=== PATIENT | female | born 1930 | race Caucasian/White ===

== ENCOUNTER 2018-11-27 18:52 | Emergency (ER) | payer MEDICARE ==
[2018-11-27] MEDS ORDERED: Fentanyl 100 MCG/2 ML VIAL ONE (20:51)
[2018-11-27] MEDS ORDERED: Sodium Bicarbonate 2.5 MEQ/5 ML VIAL ONE ×2 (21:15→21:18)
[2018-11-27] MEDS ORDERED: Lidocaine 2% MPF 10 ML AMP (For Epidural Use) ONE (21:15)
--- NOTE | 2018-11-27 21:15 | RAD ---
THREE VIEWS OF THE RIGHT FIFTH FINGER 11/27/18 COMPARISON: None. HISTORY: Cut finger with a knife. FINDINGS: There are severe degenerative changes involving the fifth distal and proximal interphalangeal joints as well as the fifth and fourth metacarpophalangeal joints. Bandaging material overlies the volar asp ect of the fifth finger at the level of the fifth middle phalanx. No radiopaque foreign body, displac ed fracture or evidence of dislocation. IMPRESSION: Soft tissue injury along the volar aspect of the fifth finger at the level of the middle phalanx. No associated fracture or dislocation. Prominent degenerative joint disease. POS: [facility]
[2018-11-27] MEDS ORDERED: Sodium Bicarb 50 MEQ/50 ML Abboject 8.4% SYRINGE ONE (21:17)
[2018-11-27 21:20] LABS: #Eosinphils 0.3 thou/uL (0.0-0.7); #Monocytes 0.5 thou/uL (0.11-0.59); #Neutrophils 2.7 thou/uL (1.40-6.50); %Basophils 0.7 % (0.0-1.0); %Eosinophils 5.8 % (0.0-10.0); %Lymphocytes 23.1 % (21.0-51.0); %Monocytes 10.8 % (0.0-10.0); %Neutrophils 59.6 % (42.0-75.0); Hemoglobin 12.4 g/dL (12.0-16.0); Mean Corpuscular HGB CONC 31.1 g/dL (32.0-36.0); Mean Corpuscular Hemoglobin 29.5 pg (27.0-31.0); Mean Corpuscular Volume 95.1 fL (78.0-98.0); Mean Platelet Volume 7.7 fL (7.4-10.4); Platelet Count 154 thou/uL (130-400); White Blood Cell (WBC) Count 4.5 thou/uL (4.8-10.8)
[2018-11-27 21:42] LABS: Anion Gap 13 mmol/L (10-20); BUN (Urea Nitrogen) 19 mg/dL (9.8-20.1); Calc. Creatinine Clearance 0 mL/min (70-130); Carbon Dioxide 22 mmol/L (23-31); Chloride 109 mmol/L (98-107); Estimated GFR-MDRD 58; Glucose 154 mg/dL (83-110); Potassium 3.6 mmol/L (3.5-5.1); Sodium 140 mmol/L (136-145)
--- NOTE | 2018-11-27 22:16 | CT ---
CT HEAD WITHOUT CONTRAST: 11/27/18 COMPARISON: 10/11/09 HISTORY: Fall, trauma, pain. TECHNIQUE: Axial CT imaging at 5 mm intervals from vertex through skull base without contrast. FINDINGS: The visualized paranasal sinuses and mastoid air cells are well aerated. There is no displaced calvar ial fracture. There is encephalomalacia involving the inferior posterior frontal lobe on the left suggesting prior left MCA infarction. There is no intracranial hemorrhage, midline shift, mass effect or ventricular e nlargement. IMPRESSION: No intracranial hemorrhage or displaced calvarial fracture. POS: [facility]
[2018-11-27] MEDS ORDERED: Adacel (T-DAP) 0.5 ML SYRINGE ONE (22:55)
--- NOTE | 2018-11-29 23:06 | EKG ---
Test Reason : FALL Blood Pressure : / mmHG Vent. Rate : 109 BPM Atrial Rate : 055 BPM P-R Int : 000 ms QRS Dur : 072 ms QT Int : 346 ms P-R-T Axes : 000 032 039 degrees QTc Int : 465 ms Septal infarct , age undetermined Abnormal ECG Confirmed by CEE SOLIS MD ([id number]), brands editor SOHAM MORALES ([id number]) on 11/29/2018 11:06:37 PM Referred By: Confirmed By:CEE SOLIS MD
== END 2018-11-27 23:18 | disposition home or self-care (01) ==
LOC: ERS 18:52
DX: S61.216A Laceration without foreign body of right little finger without damage to nail, initial encounter (principal); I10 Essential (primary) hypertension; Z86.73 Personal history of transient ischemic attack (TIA), and cerebral infarction without residual deficits; Z79.899 Other long term (current) drug therapy; W10.9XXA Fall (on) (from) unspecified stairs and steps, initial encounter
CPT/HCPCS: 12002; 70450; 80048; 85025; 90471; 90715; 93005; 96374; J2001; J3010

== ENCOUNTER 2018-12-10 18:36 | Observation (INO) | payer MEDICARE ==
[2018-12-10 20:23] LABS: Hemoglobin 12.1 g/dL (12.0-16.0); Mean Corpuscular HGB CONC 31.6 g/dL (32.0-36.0); Mean Corpuscular Hemoglobin 29.8 pg (27.0-31.0); Mean Corpuscular Volume 94.3 fL (78.0-98.0); Mean Platelet Volume 7.6 fL (7.4-10.4); Platelet Count 149 thou/uL (130-400); RBC Distribution Width 13.3 % (11.5-14.5); Red Blood Cell (RBC) Count 4.07 mill/uL (4.20-5.40); White Blood Cell (WBC) Count 1.6 thou/uL (4.8-10.8)
[2018-12-10] MEDS ORDERED: Ondansetron PF 4 MG/2 ML Vial ONE (20:26)
--- NOTE | 2018-12-10 20:41 | RAD ---
AP VIEW CHEST 12/10/18 HISTORY: Nausea, diarrhea, malaise. AP view chest is obtained on 12/10/18. Comparison made to previous exam from 11/30/13. AP view chest demonstrates interval development of cardiomegaly significantly larger than on the prev ious exam. There is also pulmonary vascular congestion seen. Calcification of the aorta is seen. IMPRESSION: Cardiomegaly and pulmonary vascular congestion. POS: [facility]
[2018-12-10 20:44] LABS: ALT (SGPT) 18 U/L (8-55); AST (SGOT) 17 U/L (5-34); Albumin 3.9 g/dL (3.4-4.8); Alkaline Phosphatase 58 U/L (40-150); Anion Gap 13 mmol/L (10-20); BUN (Urea Nitrogen) 18 mg/dL (9.8-20.1); Bilirubin, Total 0.8 mg/dL (0.2-1.2); Calc. Creatinine Clearance 0 mL/min (70-130); Calcium 8.4 mg/dL (7.8-10.44); Carbon Dioxide 19 mmol/L (23-31); Chloride 111 mmol/L (98-107); Estimated GFR-MDRD 71; Globulin 2.1 g/dL (2.4-3.5); Glucose 116 mg/dL (83-110); Lipase 24 U/L (8-78); Sodium 140 mmol/L (136-145)
[2018-12-10 20:56] LABS: Acanthocytes SLIGHT = 1-5 cells (100X) (None Seen); Band 15 % (5-11); Eosinophils 2 % (0-10); Lymphocytes 18 % (21-51); MDiff Complete? YES; Monocytes 25 % (0-10); Neutrophil 39 % (42-75); Platelet Morphology Comment Appears Adequate; Reactive Lymphocytes 1 % (0-10)
[2018-12-10] MEDS ORDERED: Magnesium 2 GM/50 ML BAG (IN WATER) ONE (22:20)
[2018-12-10] MEDS ORDERED: Potassium Chloride 40 MEQ in Sodium Chloride 0.9% 500 ML IVPB ONE (22:30)
[2018-12-10] MEDS ORDERED: MEROPENEM 1 GM/50 ML BAG IVPB SCH (23:15)
[2018-12-10 23:49] LABS: Troponin I 0.017 ng/mL (< 0.028)
[2018-12-11 00:12] VITALS: BMI 21.9
[2018-12-11 03:07] LABS: Troponin I Less than 0.010 ng/mL (< 0.028)
[2018-12-11] MEDS ORDERED: Acetaminophen 325 MG TAB PO PRN (03:28)
[2018-12-11] MEDS ORDERED: Morphine 4 MG/ML VIAL SLOW IVP PRN (03:29)
[2018-12-11] MEDS ORDERED: Metoprolol Tartrate 25 MG TAB PO SCH ×2 (03:30→11:15)
[2018-12-11] MEDS ORDERED: Furosemide 20 MG/2 ML VIAL SLOW IVP SCH (03:30)
[2018-12-11] MEDS ORDERED: Ondansetron PF 4 MG/2 ML Vial SLOW IVP PRN (04:01)
[2018-12-11] MEDS ORDERED: Ondansetron ODT 4 MG TAB PO PRN (04:01)
--- NOTE | 2018-12-11 04:37 | HP ---
PRIMARY CARE PHYSICIAN: Matthew Farnsworth MD CHIEF COMPLAINT: Nausea, vomiting, and diarrhea. HISTORY OF PRESENT ILLNESS: The patient is an 88-year-old female with past medical history of hypertension, AFib, coronary artery disease, hypothyroidism who presents to the emergency department for nausea, vomiting, and diarrhea since Saturday. The patient reports watery diarrhea and symptoms were getting worse, not improving at this point. The patient denies any fevers or any sick contacts. The patient also reports that she in the past was taking metoprolol 25 mg b.i.d., but has not taken over 1 year as it was stopped by one of her physician, she is unable to remember the name. The patient also reported that she was seen by her Audiology Technician about 3 weeks ago and the echocardiogram was normal for her. The patient denies any chest pain or abdominal pain at this point. The patient does not have any shortness of breath at this point. PAST MEDICAL HISTORY: Hypertension, AFib, coronary artery disease, left breast cancer status post resection, basal cell carcinoma of the neck, history of CVA in 2009, and myocardial infarction. PAST SURGICAL HISTORY: History of left mastectomy, orthopedic surgery. SOCIAL HISTORY: Denies smoking. Lives with the family at home and is . ALLERGIES: DENIES ANY ALLERGIES TO ANY MEDICATION. FAMILY HISTORY: Unknown. HOME MEDICATIONS: 1. Levothyroxine. 2. Aggrenox. 3. Amlodipine. 4. Isosorbide mononitrate. 5. Eliquis. 6. Nitroglycerine. 7. Multaq. REVIEW OF SYSTEMS: GENERAL: Denies any fever. HEENT: No neck pain. No changes to her vision. No problem with swallowing. CARDIOVASCULAR: Denies any chest pain. RESPIRATIONS: Denies any shortness of breath. GI: Abdominal pain. Positive for nausea, vomiting, and diarrhea. EXTREMITIES: No lower extremity edema. NEUROLOGIC: Denies any loss of consciousness. SKIN: Denies any changes or rashes to her skin. PSYCHIATRIC: Denies any confusion. The patient's daughter is present at bedside. PHYSICAL EXAMINATION: VITAL SIGNS: Blood pressure 122/74, heart rate 110 to 130, temperature 98.2, respiratory rate is 12, and O2 sat 96% on room air. GENERAL: Alert and oriented. HEENT: No lymphadenopathy noted. EYES: Extraocular movement intact. Oral mucosa within normal limits. CARDIOVASCULAR: Irregularly irregular tachycardia. No murmur, rubs, or gallops. CHEST/RESPIRATION: Clear bilaterally. No wheezes, rubs, or gallops. ABDOMEN: Soft, nontender. Bowel sounds positive. EXTREMITIES: No edema. NEUROLOGIC: Alert and oriented. PSYCHIATRIC: Pleasant mood. SKIN: No rashes noted. LABORATORY DATA: Chest x-ray significant for pulmonary vascular congestion. EKG, rapid ventricular response with AFib. Labs reviewed, significant for white blood cell count of 1.6 for hematology. For chemistry, labs significant for potassium of 0.03, creatinine 0.77, and BNP 590. ASSESSMENT AND PLAN: 1. Nausea, diarrhea: Likely due to gastroenteritis. The patient was given Merrem in the ER. We will hold off to further antibiotics at this point right now. Clear liquid diet. We will get CT abdomen and pelvis without any contrast, but cultures. Stool culture, Clostridium difficile. 2. Atrial fibrillation with RVR, likely elevated because of acute illnesses and also patient has been on metoprolol 25 mg b.i.d. that she was taking. We will give one dose of metoprolol 25 mg p.o. Cardiology consult in a.m. for further recommendation. We will continue home Eliquis 2.5 mg b.i.d. 3. Hypokalemia. Repleted in the ER. Trend labs in the morning. 4. Leukopenia. White blood cell count 1.6. The patient is not on chemo or radiation for a long time. Trend labs in the morning, possibly due to infection. If remains continued to be low, may need Hematology consult. 5. Coronary artery disease: Continue home medication. 6. Hypertension. Continue home medication at this point. 7. History of cerebrovascular disease. Continue Aggrenox. 8. Deep venous thrombosis prophylaxis. The patient is already on Eliquis. 9. Code status, full code. 10. Medical power of employment attorney, and daughter. Job ID: [id number] [facility]
[2018-12-11 06:02] LABS: Anion Gap 12 mmol/L (10-20); BUN (Urea Nitrogen) 18 mg/dL (9.8-20.1); Calc. Creatinine Clearance 54 mL/min (70-130); Calcium 7.8 mg/dL (7.8-10.44); Carbon Dioxide 21 mmol/L (23-31); Chloride 111 mmol/L (98-107); Estimated GFR-MDRD 79; Glucose 93 mg/dL (83-110); Magnesium 2.1 mg/dL (1.6-2.6); Potassium 3.8 mmol/L (3.5-5.1); Sodium 140 mmol/L (136-145)
[2018-12-11 06:14] LABS: Band 31 % (5-11); Eosinophils 1 % (0-10); Lymphocytes 13 % (21-51); MDiff Complete? YES; Mean Corpuscular HGB CONC 31.6 g/dL (32.0-36.0); Mean Corpuscular Hemoglobin 29.9 pg (27.0-31.0); Mean Corpuscular Volume 94.5 fL (78.0-98.0); Monocytes 31 % (0-10); Neutrophil 24 % (42-75); Platelet Count 148 thou/uL (130-400); RBC Distribution Width 13.3 % (11.5-14.5); Red Blood Cell (RBC) Count 4.02 mill/uL (4.20-5.40); White Blood Cell (WBC) Count 1.9 thou/uL (4.8-10.8)
[2018-12-11] MEDS: Apixaban 2.5 MG TAB PO SCH ×2 (07:47→20:19)
[2018-12-11 09:37] LABS: Troponin I Less than 0.010 ng/mL (< 0.028)
--- NOTE | 2018-12-11 10:50 | CT ---
CT CHEST WITHOUT CONTRAST CT ABDOMEN WITHOUT CONTRAST CT PELVIS WITHOUT CONTRAST: Date: 12/11/18 HISTORY: Chest pain. Diarrhea. Pulmonary congestion. COMPARISON: Chest radiograph prior day. FINDINGS: There is some scarring in the lingula and left lower lobe. There is a small focal area of consolidati on in the left lower lobe. Heart size markedly enlarged. Calcified granuloma right middle lobe. There are radiation changes of the left anterior 4th and 5th ribs with old fracture left anterior 5th , 6th, and 7th rib. Old left posterior 10th and 11th rib fractures. Moderate narrowing both hip joints. Intramedullary nail right femur. No acute thoracic or lumbar spine compression fracture. Narrowing of the subacromial space bilaterall y. The sternum and manubrium are intact. Distal transverse aorta measures 4.0 cm, dilated. Small pericardial effusion. Hypodensity hepatic seg ment KENNY measuring 8.0 mm, too small to fully characterize on this noncontrast exam. There is also hy podensity in hepatic segment V, measuring fluid attenuation likely a cyst. Mild third spacing of fluid. The appendix is visualized and is normal. No dilated loops of large or s mall bowel. Left mastectomy. No left axillary adenopathy is appreciated. No hydronephrosis. IMPRESSION: 1. Left lower lobe air space opacity may reflect aspiration or pneumonia. 2. Marked cardiomegaly. 3. Somewhat of a heterogeneous appearance to the liver. Nonemergent follow-up abdomen and pelvis CT or MRI with contrast is recommended. Small metastatic foci cannot be excluded on this noncontrast exa m. 4. Radiation changes multiple left-sided ribs with multiple old left-sided rib fractures. 5. Dilatation of the distal transverse aorta measuring up to 4.0 cm in size. POS: [facility]
[2018-12-11] MEDS ORDERED: Nitroglycerin 4.9 GM Bottle SL PRN (11:02)
--- NOTE | 2018-12-11 11:16 | PDOC.EVN ---
Event Note - Event Note Event Note: Feeling some better. Would like to try regular food. CT with possible LLL infiltrate. Exam benign. No symptoms. Will repeat CXR in am, but not treat for pneumonitis/pneumonia for now. Resume home meds. Give atenolol now. Cards consult pending. Rate likely appropriate to situation. Leukopenia consistent with a viral gastroenteritis. Recheck CBC, CXR in am. If ok and she is feeling better anticipate discharge. Has dilated Ao, but at 4 cm. Can be followed as outpatient by Cards. Heterogeneity of liver on CT unclear etiology. May be benign finding. May need outpatient follow up.
[2018-12-11 15:10] LABS: Troponin I Less than 0.010 ng/mL (< 0.028)
[2018-12-11] MEDS: Dronedarone HCl 400 MG TAB PO SCH (16:28)
[2018-12-11] MEDS: Aggrenox 200-25mg CAP PO SCH (20:20)
[2018-12-11] MEDS: Metoprolol Tartrate 25 MG TAB PO SCH (20:20)
[2018-12-11] MEDS ORDERED: Amlodipine 5 MG TAB PO SCH (21:00)
[2018-12-11] MEDS ORDERED: Apixaban 2.5 MG TAB PO SCH (21:00)
--- NOTE | 2018-12-12 05:07 | CON ---
DATE OF CONSULTATION: HISTORY OF PRESENT ILLNESS: Leida Fernandez is an 88-year-old white female who I initially evaluated in the hospital in November 2013. At that time, she was awakened at 4 a.m. with squeezing pain in her chest radiating to her left arm. Total duration of pain was 2 hours. She underwent cardiac catheterization, which revealed moderate inferobasal hypokinesis with ejection fraction of 40% to 45%. There was a 20% distal LAD, 20% lesion in a large ramus. There is a 20% proximal RCA lesion. The area of hypokinesis corresponded to the right coronary artery distribution and it was felt that her chest discomfort and MB of 17.7, troponin I of 2.009 were probably due to right coronary artery spasm. She has been followed intermittently since that time. In 2015, she developed atrial fibrillation and was placed on Multaq and Eliquis. On April 24, 2016, she underwent AARON and electrical cardioversion with return to sinus rhythm. She continued to be followed in the office and maintained sinus rhythm until her last office visit, which was November 18, 2018. At that visit, she was found to be back in atrial fibrillation. She would complain at night that she would have 10 seconds of left chest pressure that had been occurring over the last month. She underwent Lexiscan Cardiolite testing which revealed no evidence of ischemia. However, ejection fraction on that was 34%. Echocardiogram was then performed and this revealed ejection fraction of 50% to 55% with moderate left atrial and right atrial enlargement, moderate mitral regurgitation, moderate tricuspid regurgitation. She also had undergone 1-week long monitoring to see if episodes of chest pressure corresponded to episodes of rapid ventricular response. I have not received that monitoring information, but the patient states that the monitor had some technical difficulties and it is not certain if that will help. Since she has been admitted here, she does have some episodes of rapid ventricular response. She denies any increased shortness of breath, chest discomfort, or palpitations. She now was admitted with nausea, vomiting, and diarrhea. She denies any chest discomfort. Since I saw her in the office, she has not had any of the chest pressure like she described to me. PAST MEDICAL HISTORY: Paroxysmal atrial fibrillation, now persistent, hypertension, hyperlipidemia, history of CVA with aphasia which improved, history of hypothyroidism. She also had a non STEMI probably due to right coronary artery spasm in 2013. PAST SURGICAL HISTORY: ORIF of the right tib-fib fracture, breast cancer with lumpectomy, mastectomy, and chemotherapy. MEDICATIONS: At home include, 1. Multaq 400 mg b.i.d. 2. Eliquis 2.5 mg b.i.d. 3. Amlodipine 5 at bedtime. 4. Aggrenox 1 capsule b.i.d. 5. Atorvastatin 20 daily. 6. Imdur 60 mg at bedtime. 7. Levothyroxine 25 mcg daily. 8. Metoprolol 25 b.i.d. 9. Nitroglycerin p.r.n. ALLERGIES: NONE. SOCIAL HISTORY: She does not smoke. She occasionally drinks. FAMILY HISTORY: Father had myocardial infarction at age 77. REVIEW OF SYSTEMS: A 10-point review of systems is, otherwise, unremarkable. PHYSICAL EXAMINATION: VITAL SIGNS: Blood pressure 95/55, pulse of 99. HEENT: PERRL. NECK: Supple. CHEST: Clear. CARDIAC: S1 and S2 normal without any S3, S4, or murmurs. ABDOMEN: Normal bowel sounds without tenderness or organomegaly. EXTREMITIES: Revealed no clubbing, cyanosis, or edema. NEUROLOGIC: Grossly intact. LABORATORY DATA: EKG revealed atrial fibrillation with rapid ventricular response. Poor R-wave progression. Hemoglobin 12.0, hematocrit 38.0, white count 1900, platelets 148,000. Sodium 140, potassium 3.8, chloride 111, carbon dioxide 21, BUN 18, creatinine 0.70. Cardiac enzymes were unremarkable x4. IMPRESSION: 1. Nausea, vomiting, and diarrhea, most consistent with viral gastroenteritis. 2. Paroxysmal atrial fibrillation with recurrence. In 2015, she underwent electrical cardioversion. However, on November 18, 2018, followup was found to be in atrial fibrillation. 3. Normal Lexiscan Cardiolite scan. 4. Normal ejection fraction on echo of 50% to 55%. 5. Minimal coronary artery disease. 6. History of suo-PL-btavuduga myocardial infarction, probably secondary to right coronary artery spasm. 7. Positive family history. 8. Hyperlipidemia. 9. Hypertension. 10. History of cerebrovascular accident. PLAN: The patient will be continued on her current medications. She will continue to be evaluated as an outpatient. She certainly may need to undergo electrical cardioversion and this can be performed as an outpatient also. Job ID: [id number] [facility]
[2018-12-12 05:51] LABS: Anion Gap 9 mmol/L (10-20); BUN (Urea Nitrogen) 17 mg/dL (9.8-20.1); Calc. Creatinine Clearance 45 mL/min (70-130); Calcium 7.8 mg/dL (7.8-10.44); Carbon Dioxide 25 mmol/L (23-31); Chloride 109 mmol/L (98-107); Estimated GFR-MDRD 64; Glucose 95 mg/dL (83-110); Potassium 3.3 mmol/L (3.5-5.1); Sodium 140 mmol/L (136-145)
[2018-12-12 05:56] LABS: Band 6 % (5-11); Eosinophils 6 % (0-10); Hemoglobin 10.5 g/dL (12.0-16.0); Lymphocytes 15 % (21-51); MDiff Complete? YES; Mean Corpuscular HGB CONC 31.6 g/dL (32.0-36.0); Mean Corpuscular Hemoglobin 30.2 pg (27.0-31.0); Mean Corpuscular Volume 95.7 fL (78.0-98.0); Mean Platelet Volume 7.9 fL (7.4-10.4); Monocytes 16 % (0-10); Neutrophil 57 % (42-75); Platelet Count 138 thou/uL (130-400); Platelet Morphology Comment Appears Adequate; RBC Distribution Width 13.4 % (11.5-14.5); Red Blood Cell (RBC) Count 3.48 mill/uL (4.20-5.40); White Blood Cell (WBC) Count 3.9 thou/uL (4.8-10.8)
[2018-12-12] MEDS ORDERED: Levothyroxine Sodium 25 MCG TAB PO SCH (06:00)
[2018-12-12 08:17] VITALS: BP 91/50; TEMP 97.6
[2018-12-12] MEDS: Aggrenox 200-25mg CAP PO SCH (08:29)
[2018-12-12] MEDS: Metoprolol Tartrate 25 MG TAB PO SCH (08:29)
[2018-12-12] MEDS: Dronedarone HCl 400 MG TAB PO SCH (08:29)
[2018-12-12] MEDS: Apixaban 2.5 MG TAB PO SCH (08:30)
--- NOTE | 2018-12-12 08:49 | RAD ---
SINGLE VIEW OF THE CHEST: Comparison: 12-10-18 History: Aspiration. FINDINGS: Single view of the chest shows an enlarged but stable cardiomediastinal silhouette with atherosclerot ic calcifications in the aorta. There is no evidence of consolidation, mass, or pleural effusions. In creased interstitial markings are present. IMPRESSION: 1. No evidence of acute cardiopulmonary disease. 2. Cardiomegaly. POS: [facility]
[2018-12-12] MEDS ORDERED: Atorvastatin Calcium 20 MG TAB PO SCH (09:00)
[2018-12-18] MEDS ORDERED: Ergocalciferol 1.25 MG(50,000 UNITS) CAP PO SCH (09:00)
== END 2018-12-12 10:34 | disposition home or self-care (01) ==
LOC: ERS 18:36 → 2SW 22:47
PROVIDERS: ADMIT Family Medicine; ATTEND Family Medicine
DX: R11.2 Nausea with vomiting, unspecified (principal); R19.7 Diarrhea, unspecified; I10 Essential (primary) hypertension; I25.10 Atherosclerotic heart disease of native coronary artery without angina pectoris; I25.2 Old myocardial infarction; I48.1 Persistent atrial fibrillation; E03.9 Hypothyroidism, unspecified; E87.6 Hypokalemia; E78.5 Hyperlipidemia, unspecified; D72.819 Decreased white blood cell count, unspecified; Z85.3 Personal history of malignant neoplasm of breast; Z85.828 Personal history of other malignant neoplasm of skin; Z86.73 Personal history of transient ischemic attack (TIA), and cerebral infarction without residual deficits; Z92.21 Personal history of antineoplastic chemotherapy; Z90.12 Acquired absence of left breast and nipple; Z79.01 Long term (current) use of anticoagulants; Z79.899 Other long term (current) drug therapy; Z98.890 Other specified postprocedural states
CPT/HCPCS: 71045 ×2; 71250; 74177; 80048 ×2; 80053; 83605; 83690; 83735; 83880; 84484 ×4; 85025 ×3; 87040; 87045; 87046; 87324; 87449 ×2; 87899 ×2; 93005; 96361; 96365; 96366; 96367 ×2; 96375 ×2; 99285; G0378 ×2; 36415; J1940; J2185; J2405; J3475; J3480; J7050

== ENCOUNTER 2019-01-20 22:47 | Inpatient (IN) | payer MEDICARE ==
--- NOTE | 2019-01-20 23:29 | RAD ---
CHEST ONE VIEW 01/20/19 HISTORY: Weakness. COMPARISON: Radiograph 12/12/18. FINDINGS: The lungs are hyperinflated. The heart size is enlarged. No pneumothorax. No significant effusion. No acute osseous abnormality. IMPRESSION: Similar examination of the chest. Unchanged cardiomegaly. No evidence for pneumonia. POS: [facility]
[2019-01-20 23:52] LABS: #Eosinphils 0.1 thou/uL (0.0-0.7); #Lymphocytes 0.6 thou/uL (1.20-3.40); #Monocytes 0.3 thou/uL (0.11-0.59); #Neutrophils 3.1 thou/uL (1.40-6.50); %Basophils 0.7 % (0.0-1.0); %Eosinophils 1.3 % (0.0-10.0); %Lymphocytes 14.7 % (21.0-51.0); %Monocytes 6.3 % (0.0-10.0); Hemoglobin 11.8 g/dL (12.0-16.0); Mean Corpuscular HGB CONC 30.5 g/dL (32.0-36.0); Mean Platelet Volume 8.5 fL (7.4-10.4); Platelet Count 146 thou/uL (130-400); RBC Distribution Width 14.2 % (11.5-14.5); Red Blood Cell (RBC) Count 4.08 mill/uL (4.20-5.40)
[2019-01-21 00:16] LABS: ALT (SGPT) 24 U/L (8-55); AST (SGOT) 20 U/L (5-34); Albumin 3.9 g/dL (3.4-4.8); Alkaline Phosphatase 79 U/L (40-150); Anion Gap 12 mmol/L (10-20); BUN (Urea Nitrogen) 15 mg/dL (9.8-20.1); Bilirubin, Total 0.8 mg/dL (0.2-1.2); CK (CPK) 62 U/L (29-168); Calc. Creatinine Clearance 0 mL/min (70-130); Calcium 8.9 mg/dL (7.8-10.44); Carbon Dioxide 24 mmol/L (23-31); Chloride 107 mmol/L (98-107); Estimated GFR-MDRD 81; Globulin 2.1 g/dL (2.4-3.5); Glucose 163 mg/dL (83-110); Lipase 13 U/L (8-78); Potassium 3.8 mmol/L (3.5-5.1); Sodium 139 mmol/L (136-145)
[2019-01-21] MEDS ORDERED: Meclizine HCl 25 MG TAB ONE (00:42)
[2019-01-21 01:36] LABS: Bilirubin Negative (Negative); Blood, Urine Small (Negative); Clarity CLEAR (Clear); Glucose, Urine (Dipstick) Negative (Negative); Leukocyte Negative (Negative); Nitrite Negative (Negative); Protein, Urine (Dipstick) 30 mg/dL (Neg-Trace); Specific Gravity, Urine 1.013 (1.002-1.036); Urobilinogen 0.2 mg/dL (0.2-1.0)
[2019-01-21 01:39] LABS: Bacteria/HPF None Seen HPF (None Seen); Hyaline Casts/LPF 0-3 HYALINE CAST LPF (0-3 Hyaline); Pathc Cast-AUWi Flag 0.13 (0-2.49); Squamous Epithelial 0-3 HPF (0-3); WBC/HPF 0-3 HPF (0-3)
[2019-01-21] MEDS ORDERED: Acetaminophen 325 MG TAB PO PRN ×2 (02:28→11:17)
[2019-01-21 03:11] LABS: Troponin I Less than 0.010 ng/mL (< 0.028)
[2019-01-21 07:44] LABS: Troponin I Less than 0.010 ng/mL (< 0.028)
[2019-01-21] MEDS ORDERED: Famotidine 20 MG TAB PO SCH (09:00)
[2019-01-21] MEDS ORDERED: Famotidine 20 MG TAB ONE (09:04)
--- NOTE | 2019-01-21 10:03 | CT ---
PRELIMINARY REPORT/[facility]/EMERGENTY AFTER-HOURS PROCEDURE CT Head Without Contrast EXAM DATE/TIME: 01/21/2019 12:00 AM CLINICAL HISTORY: 88 years old, female; Signs and symptoms; Dizziness; Patient HX: PT C/O vertigo, n/v around 1600-took cold and flu meds- does not feel better TECHNIQUE: Imaging protocol: Axial computed tomography images of the head/brain without contrast. COMPARISON: No relevant prior studies available. FINDINGS: Brain: No hemorrhage. No acute infarct in large vascular territory. No mass effect. No extra-axial fl uid collection. Left temporal lobe encephalomalacia. Ventricles: Normal. No ventriculomegaly. Bones/joints: Unremarkable. No acute fracture. Sinuses: Mucosal thickening and air-fluid level right maxillary sinus. Partially opacified ethmoidal air cells. Mastoid air cells: Visualized mastoid air cells are unremarkable. No mastoid effusion. Soft tissues: Unremarkable. IMPRESSION: 1. No acute intracranial abnormality. 2. Mucosal thickening and air-fluid level of the right maxillary sinus could represent sinusitis. Thank you for allowing us to participate in the care of your patient. Dictated and Authenticated by: Cathy Chapin MD 01/21/2019 12:24 AM Central Time ([place] & [place]) FINAL REPORT CT OF THE BRAIN WITHOUT CONTRAST: Date: 01/20/19 INDICATION: History of vertigo. COMPARISON: Prior exam dated 11/27/18. FINDINGS/IMPRESSION: I agree with the preliminary report provided by [facility]. No acute intracranial abnormality is evident. Small area of encephalomalacia involving the left poste rior insular cortex and left anterior temporal lobe is stable to the comparison. There is moderate pa ranasal sinus disease with an air fluid level of the right maxillary sinus. POS:
[2019-01-21] MEDS ORDERED: Diltiazem 125 MG in Sodium Chloride 0.9% 100 ML IVPB SCH ×2 (10:15→11:30)
[2019-01-21 14:27] VITALS: BMI 21.5
--- NOTE | 2019-01-21 16:27 | HP ---
PRIMARY CARE PHYSICIAN: Matthew Farnsworth MD GLASS BEAD MAKER: Paolo Skinner MD CHIEF COMPLAINT: "I'm feeling dizzy." HISTORY OF PRESENT ILLNESS: Ms. Fernandez is a pleasant 88-year-old female, who has a history of hypertension as well as atrial fibrillation. She was recently admitted to the hospital with a bout of gastroenteritis. She says that on yesterday around 4:00 p.m., she noticed that the room would seem to spin, every time she tried to sit up or stand. She did not do this very long to see whether or not it would stop, but she believes it would continue and the dizziness was so severe that she felt like she may pass out. She also felt some nausea, but did not have any vomiting. She denies any headache. She denies any weakness in her extremities, but says she felt "weak all over" and felt like her legs could give out. As a result of these symptoms, she came to the ER for evaluation and she is being admitted for possible TIA symptoms as well as atrial fibrillation. The patient also notes that she did have a bad cough about a week ago. She called her primary care physician, who did give her some cough medicine and that got better. She also complains of feeling like her heart has been racing, but she denies any suraj abdominal pain. Otherwise, no other symptoms. While we were in the room evaluating the patient, it was noted that she would go into atrial fibrillation with rapid ventricular response with a heart rate up to as high as 150, typically when she tried to move or sit up. After she laid back down, her heart rate would improve somewhat to the low 100s. REVIEW OF SYSTEMS: With regard to the review of systems, all systems were reviewed and are negative except for that mentioned in the history of present illness. PAST MEDICAL HISTORY: Significant for hypertension; chronic atrial fibrillation; coronary artery disease; breast cancer, status post left mastectomy; basal cell carcinoma; cerebrovascular accident, where she says she was left with a speech deficit, which sounds like an expressive aphasia, this was about 3 years ago. She also has a history of MO. PAST SURGICAL HISTORY: She has had a left breast mastectomy. She says that she also had a crush injury to her right leg and had a surgical repair, also surgery for varicose veins. ALLERGIES: NO KNOWN DRUG ALLERGIES. SOCIAL HISTORY: She is . She and her live alone. She is a nonsmoker and nondrinker, and she has been for 68 years. Her as well as her daughter are surrogate decision makers. Her 's name is Stephen Fernandez and her daughter's name, Kendra Dan. She would not want to be resuscitated. She would not want chest compressions or intubation and is therefore DNAR. FAMILY HISTORY: Significant for her sister, who of cancer at age 65. Her brother had a heart attack and she says there is other heart disease in the family. CURRENT MEDICATIONS: Include; 1. Multaq, unsure of the dose twice a day. 2. Levothyroxine 25 mcg p.o. daily. 3. Aggrenox twice a day. 4. Amlodipine 5 mg daily. 5. Isosorbide mononitrate extended release 60 mg. 6. Eliquis 2.5 mg twice daily. 7. Nitro-Dur. 8. Tylenol as needed. 9. Vitamin D3. 10. Ocuvite. 11. Citracal. 12. Retaine eye drops. PHYSICAL EXAMINATION: GENERAL: She is alert and oriented. She appears to be in no acute distress. She is well developed and well nourished. VITAL SIGNS: Her blood pressure was 124/59, heart rate 103 ranging up to 150, respiratory rate of 17, temperature is 97.5, and O2 sat is 92% on room air. HEENT: Her pupils are equal, round, and reactive. Extraocular muscles are intact. Her sclerae are anicteric. Throat; there is no erythema. No exudate. NECK: There is no adenopathy. No bruits. Lungs: Her lungs were clear to auscultation. There are no wheezing, no rales, no rhonchi. CARDIOVASCULAR: Heart rate is rapid, irregular. Did not appreciate any murmurs, clicks, or rubs. ABDOMEN: Soft. It is nontender and nondistended. Positive for bowel sounds. There is no rebound, no guarding, no organomegaly. EXTREMITIES: She did have a deformity in the right lower calf. There is no appreciable edema. No significant joint effusions. NEUROLOGIC: Her cranial nerves II through XII are grossly intact. Her muscle strength is 5/5 in both her upper and lower extremities. SKIN AND INTEGUMENT: No skin changes. No rash. LABORATORY DATA AND X-RAY: On her EKG, it is atrial fibrillation with rapid ventricular response. The rate was approximately 118. On her chest x-ray, she has cardiomegaly. There is no evidence of any effusion or infiltrate seen. This was from 01/20, white blood cell count is 4.0, hemoglobin 11.8, hematocrit is 38.7, and platelet count is 146. Sodium 139, potassium 3.8, chloride is 107, CO2 is 24, BUN of 15, creatinine 0.69, and glucose is 169. Lactic acid 1.8. Troponin less than 0.010. Natriuretic peptide was 819. Urinalysis was essentially negative. ASSESSMENT AND PLAN: This is an 88-year-old female, who presents with dizziness upon standing or sitting. The initial thought was possible orthostatic hypotension. However, when we were in the room with the patient, it was noted that her heart rate would go up as high as 150 and then when she would lay down and relax, it would go back down to the low 100s. I suspect that her symptoms could be related to her heart rate with regard to atrial fibrillation. She is also at risk for thrombotic disease with regard to atrial fibrillation. However, she is on Eliquis and states that she is compliant with the medication. However, it is noted that she is on the lower dose of Eliquis at 2.5 mg twice a day and she does have normal renal function. This may need to be readdressed. She will be admitted to telemetry due to the atrial fibrillation with rapid ventricular response. 1. She is going to be placed on IV Cardizem due to the rapid rate. We will also consult her recycling technician, Dr. Skinner, with regard to definitive recommendations regarding her atrial fibrillation. 2. The dizziness, I suspect is due to #1. When she is feeling a bit more stable, we can try to obtain orthostatics on her with the help of the nursing staff. 3. Hypertension. We will reconcile and continue her usual medications for hypertension and p.r.n. medications as needed. 4. Coronary artery disease. Again reconcile and restart her usual medications for coronary artery disease. Job ID: [id number]
[2019-01-21] MEDS: Apixaban 2.5 MG TAB PO SCH (20:34)
[2019-01-21] MEDS: Aggrenox 200-25mg CAP PO SCH (20:34)
[2019-01-21] MEDS: Amlodipine 5 MG TAB PO SCH (20:34)
[2019-01-21] MEDS: Dronedarone HCl 400 MG TAB PO SCH (20:34)
[2019-01-21] MEDS: Famotidine 20 MG TAB PO SCH (20:35)
[2019-01-22] MEDS: Meclizine HCl 25 MG TAB PO SCH ×4 (01:29→21:23)
--- NOTE | 2019-01-22 03:56 | CON ---
DATE OF CONSULTATION: HISTORY OF PRESENT ILLNESS: Leida Fernandez is an 88-year-old white female whom I have followed since 2013. At that time, she presented with shooting pain in her chest that occurred at 4 a.m. awakening her from sleep. The pain lasted approximately 2 hours. MB was 17.7, troponin I 2.009. She underwent cardiac catheterization, which revealed moderate inferobasal hypokinesis with ejection fraction of 40% to 45%. There was a 20% distal LAD, 20% lesion in large ramus and 20% proximal RCA lesion. The area of hypokinesis corresponded to the right coronary artery distribution, and it is felt that her chest discomfort and non-STEMI were due to right coronary artery spasm. She was followed intermittently after that. In 2015, she developed atrial fibrillation and was placed on Multaq and Eliquis. On 04/24/2016, she underwent AARON and electrocardioversion and returned to sinus rhythm. She continued to maintain sinus rhythm until her last office visit on 11/18/2018. At that time, she was found to be back in atrial fibrillation. She complained at night to have 10 seconds of left chest pressure that had been occurring for one month. She underwent Lexiscan Cardiolite testing which revealed no evidence of ischemia. However, ejection fraction was 34%. Echo was then performed, and this revealed ejection fraction of 50% to 55% with moderate left atrial and right atrial enlargement, moderate mitral regurgitation, moderate tricuspid regurgitation. She was sent home with a one- week monitor to see if she was having rapid ventricular response at the time of her chest pressure, but there was malfunction of the monitor. In December 2018, she was admitted with nausea, vomiting, and diarrhea. She had not had any recurrence of chest pressure that she described to me. She ultimately was discharged, and then yesterday around 4 p.m., noted that she did have problems with the room spinning every time when she tried to sit up or stand. She had mild nausea associated with this, but no vomiting. She denies any recent chest discomfort. PAST MEDICAL HISTORY: Hypertension, mild coronary artery disease, coronary artery spasm, atrial fibrillation recurrence in November 2018, breast cancer, history of stroke, non-STEMI. OPERATIONS: ORIF of right tib-fib fracture, breast cancer with lumpectomy, mastectomy and chemotherapy. MEDICATIONS: 1. Eliquis 2.5 mg b.i.d. 2. Norvasc 5 mg daily. 3. Aggrenox 1 capsule b.i.d. 4. Lipitor 20 daily. 5. Multaq 1 tablet b.i.d. 6. Isosorbide mononitrate 60 mg daily. 7. Levothyroxine 25 mcg daily. 8. Nitroglycerin spray p.r.n. ALLERGIES: NONE. SOCIAL HISTORY: She does not smoke. She occasionally drinks. FAMILY HISTORY: Father of [place] at age 77. REVIEW OF SYSTEMS: A 12-point review of systems is otherwise unremarkable. PHYSICAL EXAMINATION: VITAL SIGNS: Blood pressure 120/72, pulse of 80 and irregularly irregular. HEENT: PERRL. NECK: Supple. CHEST: Clear. CARDIAC: S1 and S2 normal without any S3, S4, or murmurs. Carotid upstrokes normal without bruits. ABDOMEN: Normal bowel sounds without tenderness or organomegaly. EXTREMITIES: Revealed no clubbing, cyanosis, or edema. NEUROLOGIC: Grossly intact. SKIN: Warm and dry. LABORATORY DATA: EKG reveals atrial fibrillation with rapid ventricular response up to 118. Brain CT revealed no acute intracranial abnormality. Sodium 139, potassium 3.8, chloride 107, carbon dioxide 24, BUN 15, and creatinine 0.69. BNP 819.3. Cardiac enzymes are unremarkable. Hemoglobin 11.8, hematocrit 38.7, white count 4000, and platelets 146,000. IMPRESSION: 1. History most compatible with acute labyrinthitis with onset of vertigo associated with mild nausea. Even when she is supine in bed if she turns her head from [id number], she will have these feelings. This also may be due to posterior circulation CVA. However, she is on Eliquis and Aggrenox and so an ischemic CVA would seem to be less likely. 2. Recurrence of atrial fibrillation when she was seen in November 2018. 3. Normal Lexiscan Cardiolite in November 2018. 4. Ejection fraction of 50% to 55%. 5. History of myocardial infarction, probably due to right coronary artery spasm. 6. Hypertension. 7. Hypercholesterolemia. 8. Positive family history. 9. History of venous insufficiency. PLAN: The patient's history is most compatible with acute labyrinthitis with onset of her extreme vertigo even with turning her head while supine in bed. We will start a therapeutic trial of meclizine. She does have atrial fibrillation and needs to continue the lower dose of Eliquis 2.5 mg b.i.d. (age greater than 80 and weight less than 60 kg). Job ID: [id number] MTDD
[2019-01-22] MEDS: Levothyroxine Sodium 25 MCG TAB PO SCH (06:33)
[2019-01-22] MEDS: Dronedarone HCl 400 MG TAB PO SCH ×2 (08:42→21:23)
[2019-01-22] MEDS: Apixaban 2.5 MG TAB PO SCH ×2 (08:42→21:21)
[2019-01-22] MEDS: Famotidine 20 MG TAB PO SCH ×2 (08:43→21:23)
[2019-01-22] MEDS: Aggrenox 200-25mg CAP PO SCH ×2 (08:43→21:23)
[2019-01-22] MEDS: Atorvastatin Calcium 20 MG TAB PO SCH (08:43)
--- NOTE | 2019-01-22 08:54 | PDOC.PN ---
- Subjective Encounter Start Date: 01/22/19 Encounter Start Time: 08:53 Subjective: dizziness resolved lying in bed - Objective Resuscitation Status - Order Detail: 01/21/19 10:22 Resuscitation Status Routine Resuscitation Status: DNAR: NO Resuscitation Discussed with: Discussed with patient MAR Reviewed: Yes Vital Signs & Weight: Vital Signs (12 hours) Temp Pulse Resp BP Pulse Ox 01/22/19 07:44 98.3 F 88 16 102/68 94 L 01/22/19 04:00 97.4 F L 75 16 95/57 L 96 01/22/19 01:32 95 01/22/19 00:00 97.6 F 82 16 96/62 93 L Weight Weight 125 lb 8 oz I&O: 01/21/19 01/22/19 01/23/19 06:59 06:59 06:59 Intake Total 240 400 Output Total 300 Balance 240 100 Result Diagrams: 01/20/19 23:32 01/20/19 23:32 Phys Exam - Physical Examination Neck: no JVD Respiratory: clear to auscultation bilateral Cardiovascular: irregular Gastrointestinal: soft, positive bowel sounds Musculoskeletal: no edema Neurological: non-focal Dx/Plan (1) Dizziness Code(s): R42 - DIZZINESS AND GIDDINESS Status: Acute (2) Acute labyrinthitis Code(s): H83.09 - LABYRINTHITIS, UNSPECIFIED EAR Status: Acute Qualifiers: Laterality: unspecified laterality Qualified Code(s): H83.09 - Labyrinthitis, unspecified ear (3) Atrial fibrillation with controlled ventricular rate Code(s): I48.91 - UNSPECIFIED ATRIAL FIBRILLATION Status: Chronic (4) HTN (hypertension) Code(s): I10 - ESSENTIAL (PRIMARY) HYPERTENSION Status: Chronic Qualifiers: Hypertension type: essential hypertension Qualified Code(s): I10 - Essential (primary) hypertension (5) CAD (coronary artery disease) Code(s): I25.10 - ATHSCL HEART DISEASE OF [place] CORONARY ARTERY W/O ANG PCTRS Status: Chronic Qualifiers: Coronary Disease-Associated Artery/Lesion type: [place] artery [place] vs. transplanted heart: [place] heart Associated angina: without angina Qualified Code(s): I25.10 - Atherosclerotic heart disease of [place] coronary artery without angina pectoris - Plan cont meclizine -: increase activity -: cont home meds * .
[2019-01-22] MEDS ORDERED: OMEGA3S PO SCH (09:00)
[2019-01-22] MEDS ORDERED: Ergocalciferol 1.25 MG(50,000 UNITS) CAP PO SCH ×2 (09:00)
[2019-01-22] MEDS ORDERED: [UNRECOGNIZED DRUG - OTHER] PO SCH (09:00)
[2019-01-22] MEDS ORDERED: Acetaminophen 325 MG TAB PO SCH (09:00)
[2019-01-22] MEDS ORDERED: LUT PO SCH (09:00)
[2019-01-22] MEDS ORDERED: C E ZINC COPPER PO SCH (09:00)
[2019-01-22] MEDS: Vit A,C & E/Lutein/Minerals Tablet PO SCH (10:22)
[2019-01-22] MEDS: Calcium Carbonate + Vit D 250 MG TAB PO SCH (10:22)
[2019-01-22] MEDS: Acetaminophen 325 MG TAB PO SCH (10:23)
--- NOTE | 2019-01-22 18:00 | PDOC.EVN ---
Event Note - Event Note Event Note: planned AARON/ cardioversion in AM
[2019-01-22] MEDS: Amlodipine 5 MG TAB PO SCH (22:05)
[2019-01-23] MEDS: Levothyroxine Sodium 25 MCG TAB PO SCH (06:13)
[2019-01-23] MEDS: Meclizine HCl 25 MG TAB PO SCH ×3 (06:13→21:01)
[2019-01-23] MEDS: Apixaban 2.5 MG TAB PO SCH ×2 (10:19→20:53)
[2019-01-23] MEDS: Dronedarone HCl 400 MG TAB PO SCH ×2 (10:19→20:53)
[2019-01-23] MEDS: Atorvastatin Calcium 20 MG TAB PO SCH (10:21)
[2019-01-23] MEDS: Famotidine 20 MG TAB PO SCH ×2 (10:21→20:53)
[2019-01-23] MEDS: Aggrenox 200-25mg CAP PO SCH ×2 (10:22→20:53)
[2019-01-23] MEDS: Vit A,C & E/Lutein/Minerals Tablet PO SCH (10:23)
[2019-01-23] MEDS: Calcium Carbonate + Vit D 250 MG TAB PO SCH (10:24)
[2019-01-23] MEDS: Acetaminophen 325 MG TAB PO SCH (10:24)
--- NOTE | 2019-01-23 11:47 | PDOC.PN ---
- Subjective Encounter Start Date: 01/23/19 Encounter Start Time: 11:43 Subjective: admitted with acute onset of dizziness and vertigo. -: Recently had URI associated with hearing issues. -: Feeling better with meclizine and PT. Still having gait instability - Objective Resuscitation Status - Order Detail: 01/21/19 10:22 Resuscitation Status Routine Resuscitation Status: DNAR: NO Resuscitation Discussed with: Discussed with patient Vital Signs & Weight: Vital Signs (12 hours) Temp Pulse Pulse Pulse Resp BP BP 01/23/19 11:26 98.2 F 93 14 01/23/19 09:47 86 67 121/69 112/64 01/23/19 07:50 97.6 F 78 16 01/23/19 04:00 98.1 F 95 18 01/23/19 00:00 98.2 F 93 19 BP Pulse Ox 01/23/19 11:26 108/69 94 L 01/23/19 09:47 01/23/19 07:50 106/74 96 01/23/19 04:00 101/70 91 L 01/23/19 00:00 100/64 92 L Weight Weight 125 lb 8 oz I&O: 01/22/19 01/23/19 01/24/19 06:59 06:59 06:59 Intake Total 400 540 Output Total 300 Balance 100 540 Result Diagrams: 01/20/19 23:32 01/20/19 23:32 Phys Exam - Physical Examination HEENT: PERRLA, moist MMs Neck: no JVD, supple Respiratory: no wheezing, no rales, no rhonchi Cardiovascular: irregular Gastrointestinal: soft, non-tender, no distention, positive bowel sounds Musculoskeletal: no edema, pulses present Neurological: non-focal, moves all 4 limbs unsteady gait Psychiatric: A&O x 3 Dx/Plan (1) Paroxysmal atrial fibrillation with rapid ventricular response Code(s): I48.0 - PAROXYSMAL ATRIAL FIBRILLATION Status: Acute (2) Gait instability Code(s): R26.81 - UNSTEADINESS ON FEET Status: Acute (3) Physical deconditioning Code(s): R53.81 - OTHER [place] Status: Acute (4) Acute labyrinthitis Code(s): H83.09 - LABYRINTHITIS, UNSPECIFIED EAR Status: Acute Qualifiers: Laterality: unspecified laterality Qualified Code(s): H83.09 - Labyrinthitis, unspecified ear (5) CAD (coronary artery disease) Code(s): I25.10 - ATHSCL HEART DISEASE OF [place] CORONARY ARTERY W/O ANG PCTRS Status: Chronic Qualifiers: Coronary Disease-Associated Artery/Lesion type: [place] artery [place] vs. transplanted heart: [place] heart Associated angina: without angina Qualified Code(s): I25.10 - Atherosclerotic heart disease of [place] coronary artery without angina pectoris (6) HTN (hypertension) Code(s): I10 - ESSENTIAL (PRIMARY) HYPERTENSION Status: Chronic Qualifiers: Hypertension type: essential hypertension Qualified Code(s): I10 - Essential (primary) hypertension - Plan For AARON cardioversion by cardiology later today. continue rate control meds -: Continue Meclizine and PT. -: Continue other medications. -: Continue anticoagulation. Get CBC and BMP * .
[2019-01-23 12:00] LABS: #Eosinphils 0.2 thou/uL (0.0-0.7); #Lymphocytes 1.1 thou/uL (1.20-3.40); #Monocytes 0.7 thou/uL (0.11-0.59); #Neutrophils 3.4 thou/uL (1.40-6.50); %Basophils 0.9 % (0.0-1.0); %Eosinophils 3.3 % (0.0-10.0); %Lymphocytes 20.9 % (21.0-51.0); %Monocytes 12.3 % (0.0-10.0); %Neutrophils 62.6 % (42.0-75.0); Hemoglobin 11.2 g/dL (12.0-16.0); Mean Corpuscular HGB CONC 31.5 g/dL (32.0-36.0); Mean Corpuscular Hemoglobin 29.3 pg (27.0-31.0); Mean Corpuscular Volume 93.1 fL (78.0-98.0); Mean Platelet Volume 7.5 fL (7.4-10.4); Platelet Count 176 thou/uL (130-400); RBC Distribution Width 14.2 % (11.5-14.5); Red Blood Cell (RBC) Count 3.83 mill/uL (4.20-5.40); White Blood Cell (WBC) Count 5.4 thou/uL (4.8-10.8)
[2019-01-23] MEDS ORDERED: Ondansetron PF 4 MG/2 ML Vial SLOW IVP PRN (12:28)
[2019-01-23 12:36] LABS: ALT (SGPT) 18 U/L (8-55); AST (SGOT) 14 U/L (5-34); Albumin 3.4 g/dL (3.4-4.8); Alkaline Phosphatase 67 U/L (40-150); Anion Gap 8 mmol/L (10-20); BUN (Urea Nitrogen) 13 mg/dL (9.8-20.1); Bilirubin, Total 0.7 mg/dL (0.2-1.2); Calc. Creatinine Clearance 53 mL/min (70-130); Calcium 8.8 mg/dL (7.8-10.44); Carbon Dioxide 28 mmol/L (23-31); Chloride 109 mmol/L (98-107); Estimated GFR-MDRD 81; Globulin 2.2 g/dL (2.4-3.5); Glucose 94 mg/dL (83-110); Magnesium 1.9 mg/dL (1.6-2.6); Potassium 3.5 mmol/L (3.5-5.1); Protein, Total 5.6 g/dL (6.0-8.3); Sodium 141 mmol/L (136-145)
[2019-01-23] MEDS ORDERED: PROPOFOL 200 MG/20 ML VIAL ONE (12:40)
[2019-01-23] MEDS ORDERED: PROPOFOL 20 ML ONE (17:43)
[2019-01-23] MEDS: Amlodipine 5 MG TAB PO SCH (20:53)
[2019-01-24] MEDS: Meclizine HCl 25 MG TAB PO SCH ×2 (05:06→14:05)
[2019-01-24] MEDS: Levothyroxine Sodium 25 MCG TAB PO SCH (05:06)
[2019-01-24 07:56] VITALS: TEMP 98
[2019-01-24] MEDS: Acetaminophen 325 MG TAB PO SCH (09:27)
[2019-01-24] MEDS: Vit A,C & E/Lutein/Minerals Tablet PO SCH (09:27)
[2019-01-24] MEDS: Apixaban 2.5 MG TAB PO SCH (09:27)
[2019-01-24] MEDS: Dronedarone HCl 400 MG TAB PO SCH (09:28)
[2019-01-24] MEDS: Famotidine 20 MG TAB PO SCH (09:28)
[2019-01-24] MEDS: Atorvastatin Calcium 20 MG TAB PO SCH (09:28)
[2019-01-24] MEDS: Aggrenox 200-25mg CAP PO SCH (09:28)
[2019-01-24] MEDS: Calcium Carbonate + Vit D 250 MG TAB PO SCH (09:28)
[2019-01-24] MEDS ORDERED: Potassium Chloride 20 MEQ TAB PO SCH (10:30)
[2019-01-24 11:39] VITALS: BP 94/66
--- NOTE | 2019-01-24 11:52 | PDOC.CTH ---
Cardiology Progress Note - Subjective The pt seen and examined. No overnight events. No cardiac complaints. She does have intermittent dizziness, especially when she is getting up. - Objective Vital Signs Temp Pulse Resp BP Pulse Ox 01/24/19 11:38 98.0 F 83 16 94/66 92 L 01/24/19 08:15 92 L 01/24/19 07:55 98.0 F 50 L 14 113/56 L 92 L 01/24/19 04:00 97.4 F L 78 16 106/63 96 01/24/19 00:00 98.5 F 78 16 116/65 94 L Weight 125 lb 8 oz 01/23/19 01/24/19 01/25/19 06:59 06:59 06:59 Intake Total 540 Output Total 10 Balance 540 -10 - Physical Examination General/Neuro: alert & oriented x3 Neck: no JVD present Heart: RRR Abdomen: soft Extremities: other: (No edema) - Telemetry Telemetry Rhythm: SR with PACs - Labs Result Diagrams: 01/23/19 11:55 01/23/19 11:55 Troponin/CKMB Troponin I Less than 0.010 ng/mL (< 0.028) 01/21/19 05:48 - Assessment/Plan 1. Paroxysmal Afib with RVR with s/p AARON/DCCV on 01/23/2019 - Remains in SR with PACs. On Multaq and Eliquis 2.5mg BID. 2. Dizziness - stable 3. CAD - stable; On ASA and Statin; Not on Bblocker 2/2 hypotensive; defer to Dr Skinner. 4. HTN - stable with current med MAR reviewed * From Cardiac standpoint, the pt is stable to d/c home. She will f/u with Dr Skinner in 02/2019. Review of Systems - Review of Systems Constitutional: reports: no symptoms reported EENTM: reports: no symptoms reported Respiratory: reports: no symptoms reported Cardiac (ROS): reports: no symptoms reported ABD/GI: reports: no symptoms reported : reports: no symptoms reported Musculoskeletal: reports: no symptoms reported Skin: reports: no symptoms reported
--- NOTE | 2019-01-24 15:41 | EKG ---
Test Reason : Blood Pressure : / mmHG Vent. Rate : 118 BPM Atrial Rate : 091 BPM P-R Int : 000 ms QRS Dur : 086 ms QT Int : 334 ms P-R-T Axes : 000 011 159 degrees QTc Int : 468 ms Atrial fibrillation with rapid ventricular response with premature ventricular or aberrantly conducte d complexes Minimal voltage criteria for LVH, may be normal variant Nonspecific T wave abnormality , probably digitalis effect No STEMI Abnormal ECG Confirmed by MARIS Burt, KEREN ([id number]), news videotape editor SOHAM MORALES ([id number]) on 01/24/2019 3:40:46 PM Referred By: Confirmed By:KEREN POLLOCK M.D.
--- NOTE | 2019-01-24 16:56 | OP ---
DATE OF SERVICE: 01/23/19 PROCEDURES PERFORMED: Atrial fibrillation. SUMMARY: The patient is an 88-year-old female who comes to the PACU for a planned AARON cardioversion. AARON ruled out thrombus in any of the cardiac chambers. The Anesthesiology Department provided with anesthesia. After adequate sedation was achieved, one ICD shock at 100 joules was delivered synchronized unsuccessfully. A second synchronized shock was deliv ered at 150 joules successfully converting her into sinus rhythm with PACs. RECOMMENDATIONS: Continue current medications. Continued Multaq and continue full anticoagulation with Eliquis. 1.
--- NOTE | 2019-01-24 17:34 | ECHO ---
DATE OF SERVICE: 01/23/19 PREPROCEDURE DIAGNOSIS: A-fib. The Anesthesiology department provided with sedation for the patient. Please see their notes for det ails. After adequate sedation was achieved. The transesophageal probe was inserted into the mouth and into the esophagus without issues. Left ventricle is normal size. EF at 50%. Left atrium is mildly dilated. Left atrial appendage is a large appendage with no evidence of mass or thrombus. Aortic valve is structurally normal. Three cusps, no stenosis or regurgitation. Mitral valve is structurally normal. There is mild MR. CONCLUSIONS: 1. EF at 50%. 2. No evidence of mass or thrombus in the left atrial appendage. 3. Mild MR.
== END 2019-01-24 15:28 | disposition home health service (06) | DRG 310 ==
LOC: ERS 22:47 → OBSVTOIN 01-21 02:20 → ERHOLD 01-21 02:20 → 2SE 01-21 13:40
PROVIDERS: ADMIT Internal Medicine; ATTEND Internal Medicine
PROC: B24BZZ4 Ultrasonography of Heart with Aorta, Transesophageal (ICD-10-PCS; principal; 2019-01-23)
PROC: 5A2204Z Restoration of Cardiac Rhythm, Single (ICD-10-PCS; 2019-01-23)
DX: I48.0 Paroxysmal atrial fibrillation (principal); Z66 Do not resuscitate; I25.10 Atherosclerotic heart disease of native coronary artery without angina pectoris; H83.09 Labyrinthitis, unspecified ear; I10 Essential (primary) hypertension; E78.00 Pure hypercholesterolemia, unspecified; R26.81 Unsteadiness on feet; Z79.01 Long term (current) use of anticoagulants; Z79.899 Other long term (current) drug therapy; Z90.12 Acquired absence of left breast and nipple; I69.320 Aphasia following cerebral infarction
CPT/HCPCS: 36415; 70450; 71045; 80053; 81003; 81015; 82550; 83605; 83690; 83735; 83880; 84484; 85025; 87040; 87086; 87804; 93005; 93312; 94760; 96360; J2405; J2704; J7050

== ENCOUNTER 2019-09-04 00:11 | Emergency (ER) | payer MEDICARE ==
--- NOTE | 2019-09-04 07:39 | CT ---
PRELIMINARY REPORT/[facility]/EMERGENCY AFTER HOURS PROCEDURE: PROCEDURE INFORMATION: Exam: CT Head Without Contrast Exam date and time: 09/04/2019 12:26 AM Clinical history: 89 years old, female; Injury or trauma; Initial encounter; Abrasion; Not specified; Patient HX: Post fall, lost balance, hit head, no loc, PT in on eliquis TECHNIQUE: Imaging protocol: Computed tomography of the head without contrast. COMPARISON: No relevant prior studies available. FINDINGS: Brain: Volume loss and chronic small vessel ischemic change. Left temporal encephalomalacia sarcoidos is. No brain edema. No intracranial hemorrhage. Ventricles: Normal. No ventriculomegaly. Bones/joints: Unremarkable. No acute fracture. Sinuses: Visualized sinuses are unremarkable. No fluid levels. Mastoid air cells: Visualized mastoid air cells are well aerated. Soft tissues: Unremarkable. IMPRESSION: No acute brain findings. Thank you for allowing us to participate in the care of your patient. Dictated and Authenticated by: Paul Alvarez MD 09/04/2019 12:41 AM Central Time ([place] & [place]) FINAL REPORT HEAD CT WITHOUT CONTRAST: HISTORY: Fall. Pain. Trauma. COMPARISON: None. FINDINGS: Hemorrhage: No intraparenchymal hemorrhage or extra-axial hematoma. Brain parenchyma: Cortical mejia-white matter differentiation is preserved. No mass effect or midline shift. Basilar cisterns are patent. Ventricular system: Ventricles and sulci are patent and symmetric. Calvarium: Intact. Sinuses and mastoid air cells: Adequate aeration. IMPRESSION: 1. This report is in agreement with the preliminary report by [facility]. 2. No intracranial posttraumatic sequelae. Transcribed Date/Time: 09/04/2019 8:05 AM
== END 2019-09-04 02:27 | disposition home or self-care (01) ==
LOC: ERS 00:11
DX: S00.83XA Contusion of other part of head, initial encounter (principal); S50.311A Abrasion of right elbow, initial encounter; I25.2 Old myocardial infarction; I48.91 Unspecified atrial fibrillation; I10 Essential (primary) hypertension; Z79.899 Other long term (current) drug therapy; W18.30XA Fall on same level, unspecified, initial encounter
CPT/HCPCS: 70450